=== PATIENT | male | born 1975 | race Caucasian/White ===

== ENCOUNTER 2017-12-22 17:58 | Emergency (ER) | payer SELFPAY ==
[2017-12-22] MEDS: KETOROLAC 60 MG INJ IM (22:10)
== END 2017-12-22 22:24 | disposition home or self-care (01) ==
LOC: FTE 17:58
DX: S06.0X0A Concussion without loss of consciousness, initial encounter (principal); S40.022A Contusion of left upper arm, initial encounter; M62.838 Other muscle spasm; R07.9 Chest pain, unspecified; V49.50XA Passenger injured in collision with unspecified motor vehicles in traffic accident, initial encounter
CPT/HCPCS: 70450; 71046; 72040; 96372; 99285-25